=== PATIENT | male | born 1960 | race Caucasian/White ===

== ENCOUNTER → 2016-10-11 | Outpatient (CLI) | payer BC | LOC: M LAB 14:20 | PROVIDERS: ATTEND Urology | DX: R97.20 Elevated prostate specific antigen [PSA] (principal) ==

== ENCOUNTER → 2017-01-15 | Outpatient (REF) | payer BC | LOC: M LAB REF 09:09 | PROVIDERS: ATTEND Physician Assistant | DX: L02.31 Cutaneous abscess of buttock (principal) ==

== ENCOUNTER → 2017-03-23 | Outpatient (CLI) | payer BC ==
--- NOTE | 2017-03-27 13:42 | SLEEPHOME ---
DATE OF STUDY: 03/23/2017 ORDERED BY: Belen España NP Diagnostic home sleep testing was performed due to concern for the obstructive sleep apnea syndrome in this patient with a history of excessive somnolence. For testing, a NOX-T3 respiratory monitoring device was used. Continuous record was made of pulse, oxygen saturation, airflow, chest and abdominal strain, and body position. 10 hours and 59 minutes of data were reviewed. Of these, 7 hours and 47 minutes were marked as time in bed. During the interval marked time in bed, there were 219 respiratory events identified of 10 seconds in duration or greater for a respiratory event index of 28.1. The events were primarily obstructive. Baseline pulse rate 76 beats per minute, pulse rate ranged 60 to 100. Baseline saturation 91%. Lowest oxygen saturation 80%. Testing was performed in both the supine and non supine positions. IMPRESSION: Abnormal home sleep testing with repetitive respiratory events and oxygen desaturations to 80% with an respiratory event index of 28.1 is consistent with the obstructive sleep apnea syndrome. RECOMMENDATION: The patient should be encouraged to undergo formal sleep evaluation and in laboratory pressure titration.
== END ==
LOC: M SLEEP HO 08:34
PROVIDERS: ATTEND Nurse Practitioner Adult Health
DX: G47.30 Sleep apnea, unspecified (principal)

== ENCOUNTER → 2017-12-04 | Outpatient (REF) | payer BC | LOC: M LAB REF 09:14 | DX: N41.0 Acute prostatitis (principal) | CPT/HCPCS: 87086 ==